=== PATIENT | female | born 1975 | race Caucasian/White ===

== ENCOUNTER → 2018-01-07 | Outpatient (CLI) | payer BC ==
--- NOTE | 2018-01-08 08:33 | RADIOLOGY IMAGING REPORT ---
FACILITY: [facility] PATIENT NAME: DELICIA URENA : [id number] MR: [id number]: [id number] EXAM DATE: [id number] ORDERING PHYSICIAN: TAYO SARMIENTO TECHNOLOGIST: Dina Jones PROCEDURE:BILATERAL DIAGNOSTIC DIGITAL MAMMOGRAM WITH CAD ASSISTED INTERPRETATION & 3D TOMOSYNTHESIS COMPARISON:Prior outside mammograms 12/03/17 INDICATIONS:further evaluation FINDINGS: The patient received spot compression views in the CC & MLO projections bilaterally with implant displacement. Multiple well circumscribed nodules are seen throughout both breasts. Today's bilateral breast Ultrasound demonstrated numerous cysts throughout both breasts. There are 2 well circumscribed solid nodules identified in both breasts as described in Today's bilateral breast Ultrasound report. Also noted is a macrocalcification in the approximate 9 o'clock position of the Right breast which was also seen within the solid nodule on Today's Right breast Ultrasound. DIAGNOSTIC CATEGORY 3--PROBABLY BENIGN FINDING. RECOMMENDATIONS: SIX MONTH FOLLOW-UP ULTRASOUND: BILATERAL BREASTS. IMPRESSION: BIRADS 3: Probably benign finding. Six month follow-up bilateral breast Ultrasound is recommended as described in Today's bilateral breast Ultrasound report. Dictated by: Yael Stout M.D. on 01/07/2018 at 17:43 Transcribed by: MIKEY on 01/08/2018 at 8:21 Approved by: Yael Stout M.D. on 01/08/2018 at 8:32 [facility]
== END ==
LOC: MAMO 14:08
PROVIDERS: ATTEND Obstetrics & Gynecology
DX: N60.02 Solitary cyst of left breast (principal); N60.01 Solitary cyst of right breast; R92.1 Mammographic calcification found on diagnostic imaging of breast; Z98.82 Breast implant status
CPT/HCPCS: 76641; 77062; 77066